=== PATIENT | female | born 1965 | race Caucasian/White ===

== ENCOUNTER 2023-07-03 01:24 | Emergency (ER) | payer MEDICAID ==
[~2023-07-03] VITALS: Ht 162.6 cm; Wt 68.0 kg
[2023-07-03] MEDS ORDERED: MAGNESIUM/ALUMINUM HYDROXIDE/SIMETHICONE 30ML UDC PO STA (01:27)
[2023-07-03] MEDS ORDERED: ONDANSETRON HCL 4MG/2ML INJ IV STA (01:27)
[2023-07-03] MEDS ORDERED: MORPHINE SULFATE 4 MG/ML CPJ (NOT FOR IM USE) IV STA (01:27)
[2023-07-03] MEDS ORDERED: PANTOPRAZOLE SODIUM 40 MG/VIAL IV STA (01:27)
[2023-07-03] MEDS ORDERED: SODIUM CHLORIDE 0.9% 1,000 ML IV ONE (01:30)
[2023-07-03 01:38] VITALS: O2SAT 99
[2023-07-03 03:05] LABS: BASOPHILS % 0.4 % (0.0-2.0); EOSINOPHILS % 0.8 % (0.0-5.0); HEMATOCRIT. 40.1 % (36.0-48.0); LYMPHOCYTES % 20.9 % (20.0-50.0); MEAN CORPUSCULAR HEMOGLOBIN 31.7 pg (28.0-32.0); MEAN CORPUSCULAR HGB CONC 34.8 g/dL (31.0-37.0); MEAN CORPUSCULAR VOLUME 91.1 fL (81.0-99.0); MEAN PLATELET VOLUME 8.7 fl (7.4-10.4); MONOCYTES % 8.5 % (2.0-8.0); NEUTROPHILS % 69.4 % (40.0-76.0); PLATELET 232 x1000/uL (130-400); RED BLOOD CELL COUNT 4.41 mill/uL (4.2-5.4); RED CELL DISTRIBUTION WIDTH 12.9 % (11.6-14.6); WHITE BLOOD COUNT 7.6 x1000/uL (4.5-11.0)
[2023-07-03 03:13] LABS: PROTHROMBIN TIME 10.7 sec (9.6-11.0)
[2023-07-03] MEDS ORDERED: MAGNESIUM/ALUMINUM HYDROXIDE/SIMETHICONE 30ML UDC PO NR (03:45)
[2023-07-03 04:00] LABS: ALANINE AMINOTRANSFERASE 24 IU/L (10-49); ALBUMIN 4.5 g/dL (3.2-4.8); ASPARTATE AMINOTRANSFERASE 31 IU/L (<34); BILIRUBIN TOTAL 0.5 mg/dL (0.1-1.0); CALCIUM 10.3 mg/dL (8.7-10.4); CARBON DIOXIDE 25 mEq/L (21-32); CHLORIDE 102 mEq/L (98-107); CREATININE 0.7 mg/dL (0.6-1.0); GLUCOSE 106 mg/dL (70-105); POTASSIUM 3.9 mEq/L (3.5-5.1); PROTEIN TOTAL 8.6 g/dL (6.0-8.3); SODIUM 137 mEq/L (136-145); UREA NITROGEN BLOOD 11 mg/dL (9-23)
[2023-07-03] MEDS ORDERED: ONDANSETRON 4MG ODT PO ONE (04:00)
[2023-07-03] MEDS ORDERED: PANTOPRAZOLE 40MG DR TABLET PO ONE (04:00)
[2023-07-03 04:05] LABS: ETHANOL BLOOD < 10 mg/dL (<10)
[2023-07-03] MEDS ORDERED: MAG355OR21 MT (04:53)
[2023-07-03] MEDS ORDERED: PROT40 MT (04:53)
[2023-07-03] MEDS ORDERED: ONDA4TAB50 MT (04:53)
[2023-07-03 07:00] VITALS: BP 107/57; PULSE 78; RESP 14; TEMP 98.4
== END 2023-07-03 08:52 | disposition home or self-care (01) ==
LOC: ER 01:34
DX: K29.70 Gastritis, unspecified, without bleeding (principal); Z00.00 Encounter for general adult medical examination without abnormal findings; Z90.49 Acquired absence of other specified parts of digestive tract
CPT/HCPCS: 80053; 80320; 83605; 83690; 85025; 85610; 86850; 86900; 86901; 36415; 71045; 99285; J7030; G0480